=== PATIENT | male | born 2000 | race Caucasian/White ===

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

== ENCOUNTER 2023-03-20 16:17 | Emergency (ER) | payer OTHER ==
[~2023-03-20] VITALS: Ht 182.9 cm; Wt 95.3 kg
[2023-03-20 16:30] VITALS: BP 127/85; PULSE 104; RESP 14; TEMP 98.6; O2SAT 99
[2023-03-20] MEDS ORDERED: IBUP-2213 PO (18:25)
[2023-03-20 18:33] VITALS: BP 113/67; PULSE 74; RESP 17; O2SAT 98
== END 2023-03-20 18:33 | disposition home or self-care (01) ==
LOC: MED 16:17
DX: S82.891A Other fracture of right lower leg, initial encounter for closed fracture (principal); X58.XXXA Exposure to other specified factors, initial encounter; Y93.89 Activity, other specified; Y92.89 Other specified places as the place of occurrence of the external cause; Y99.8 Other external cause status
CPT/HCPCS: 29515; 73610; 99283